=== PATIENT | female | born 1985 | race Caucasian/White ===

== ENCOUNTER → 2019-01-16 | Outpatient (CLI) | payer OTHER ==
--- NOTE | 2019-01-16 13:42 | US ---
EXAMINATION TYPE: US thyroid st tissue head/neck DATE OF EXAM: 01/16/2019 COMPARISON: NONE CLINICAL HISTORY: E04.9 GOITER. GLAND SIZE: Right Lobe: 4.9x 1.7 x 1.2 cm Overall Parenchyma: homogenous Left Lobe: 4.2 x 1.4 x 1.2 cm Overall Parenchyma: homogeneous Isthmus Thickness: 0.3 cm NODULES RIGHT: # of nodules measured on right: 2 1. 0.2 X 0.2 x 0.2 cm mixed nodule at the lower pole with ill-defined margins; . This nodule is ro und and shows no intranodular vascularity. Prior size: no prior 2. 0.3 X 0.3 x 0.2 cm mixed nodule at the upper pole with well-defined margins;. This nodule is wid er than tall and shows no intranodular vascularity. Prior size: no prior LEFT: # of nodules measured on left: 1 1. 0.5 X 0.4 x 0.5 cm solid nodule at the upper pole with well-defined margins; . This nodule is wider than tall and shows intranodular vascularity. Prior size: no prior ISTHMUS: # of nodules measured in the isthmus: 0 Bilateral neck scanned, left submandibular area of pain per pt. At angle of mandible 1.2 x 0.6 x 0.9 cm vascular . Comparison rt looks smaller area, also posterior neck looked at per pt pain area, [facility] called office to verify order but office not available There is homogeneous normal size thyroid with 2 small nodules marked by technologist. There are promi nent but without benign bilateral subcentimeter submandibular lymph nodes marked by technologist. End of study posterior neck at site of pain shows no worrisome mass or fluid collection. IMPRESSION: As above.
== END | disposition home or self-care (01) ==
LOC: RADUSWWP 12:53
PROVIDERS: ATTEND Family Medicine
DX: E04.2 Nontoxic multinodular goiter (principal)
CPT/HCPCS: 76536